=== PATIENT | male | born 1985 | race Hispanic/Latino ===

== ENCOUNTER 2019-06-09 21:41 | Emergency (ER) | payer OTHER ==
[~2019-06-09] VITALS: Ht 167.6 cm; Wt 61.2 kg
[2019-06-09 21:41] VITALS: BP 111/70
[2019-06-09] MEDS ORDERED: VERSED ONE ×2 (21:47→21:56)
--- NOTE | 2019-06-09 21:50 | NUR ---
CT PATIENT TRANSPORTED TO CT WITH ACLS TRAINED RN AND RT, ATTACHED TO THE DEFIBRILLATOR ON O2 AT 2LPM VIA NC
--- NOTE | 2019-06-09 21:52 | NUR ---
CT PATIENT UNCOOPERATIVE IN CT. PATIENT GIVEN 2MG OF VERSED PER DR LONG. DEFIBRILLATOR ATTACHED TO PATIENT AND PULSE OX ATTACHED TO PATIENT. RN AND RT AT SIDE OF PATIENT DURING CT PROCEDURE. O2SAT MAINTAINED ABOVE 90% WITHOUT NEEDING TO TITRATE O2
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
--- NOTE | 2019-06-09 22:00 | NUR ---
VERSED UNABLE TO CALM PATIENT. PATIENT CONTINUES TO BE UNCOOPERATIVE DURING CT SCAN. 5MG OF VERSED GIVEN PER DR LONG. DEFIBRILLATOR PADS AND PULSE OX ATTACHED TO PATIENT. RT AND RN REMAINED AT SIDE DURING PROCEDURE. O2SAT MAINTAINED ABOVE 90% WITH NO NEED TO TITRATE O2. PATIENT CALM AND MORE COOPERATIVE AFTER ADMINISTERATION
[2019-06-09] MEDS ORDERED: NS 1000ML 1,000 ML ONE (22:15)
--- NOTE | 2019-06-09 22:20 | PCM.EKG ---
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
[2019-06-09 22:35] LABS: BASOPHIL % 0.5 % (0.0-0.2); EOSINOPHIL # 0.1 10^3/uL (0.0-0.2); EOSINOPHIL % 0.8 % (0.0-5.0); LYMPHOCYTES # 1.03 10^3/uL1 (1.0-4.8); LYMPHOCYTES % 15.7 % (24.0-44.0); MEAN CORP HGB 33.2 pg (26-34); MONOCYTES # 0.6 10^3/uL (0.3-0.8); MONOCYTES % 8.7 % (5.0-12.0); NEUTROPHIL # 4.9 10^3/uL (1.8-7.7); NEUTROPHILS % 74.1 % (41.0-85.0)
[2019-06-09] MEDS ORDERED: ATIVAN ONE (22:37)
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
[2019-06-09 22:46] VITALS: BP 128/75
[2019-06-09 22:48] LABS: BILIRUBIN,URINE NEGATIVE (NEGATIVE); UROBILINOGEN,URINE NORMAL (NEGATIVE)
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
[2019-06-09 22:50] LABS: APPEARANCE,URINE CLEAR (CLEAR); UA COLOR YELLOW (YELLOW)
[2019-06-09] MEDS ORDERED: LIDOCAINE 1% VIAL ONE (22:55)
[2019-06-09 22:57] LABS: ALANINE AMINOTRANSFERASE(ML) 31 U/L (12-78); ALKALINE PHOSPHATASE 67 U/L (50-136); ASPARTATE AMINO TRANSFERASE 39 U/L (0-35); CALCIUM 7.3 mg/dL (8.4-10.5); CARBON DIOXIDE 23.1 mmol/L (20.0-32); GLUCOSE 82 mg/dL (70-110)
--- NOTE | 2019-06-09 23:15 | NUR ---
O2 PATIENT PLACED ON RA. O2SAT 96%
--- NOTE | 2019-06-09 23:20 | NUR ---
O2SAT O2SAT DECREASED TO 65% ON RA. PATIENT PLACED ON NON REBREATHER AT 15LPM. O2SAT 98%. NO SIGNS OF DISTRESS NOTED
[2019-06-09 23:31] VITALS: BP 105/58
--- NOTE | 2019-06-09 23:50 | NUR ---
rinaldi rinaldi catheter removed without complications
[2019-06-09] MEDS ORDERED: ADACEL VIAL IM ONE (23:54)
[2019-06-09] MEDS ORDERED: VERSED IV STA ×2 (23:56)
[2019-06-09] MEDS ORDERED: ATIVAN IV STA (23:56)
[2019-06-10] MEDS ORDERED: ADACEL VIAL IM ONE
[2019-06-10] MEDS ORDERED: TENIVAC SYRINGE IM ONE
--- NOTE | 2019-06-10 | NUR ---
O2 PATIENT ON RA. O2SAT 96%. NO SIGNS OF DISTRESS NOTED
--- NOTE | 2019-06-10 | NUR ---
DISCHARGE PATIENT DISCHARGED. PATIENT GAVE CONSENT AND NUMBER TO CALL TATIANA HIS SISTER. SISTER NOTIFIED OF DISCHARGE AND STATED SHE IS ON HER WAY TO [employer] APPRENTICE PATIENT
--- NOTE | 2019-06-10 | NUR ---
RESTRAINTS ALL RESTRAINTS REMOVED FROM PATIENT. PULSES PRESENT TO BUE AND BLE
[2019-06-10 00:31] VITALS: BP 109/55
--- NOTE | 2019-06-10 00:45 | NUR ---
O2 PATIENT PLACED ON 2LPM VIA NC. O2SAT 98%
--- NOTE | 2019-06-10 00:46 | NUR ---
UPDATE PATIENT IN BED SLEEPING. NO SIGNS OF DISTRESS NOTED
[2019-06-10 01:01] VITALS: BP 102/68
--- NOTE | 2019-06-10 01:30 | NUR ---
UPDATE PATIENT IN BED SLEEPING. RESPIRATIONS EVEN AND NON LABORED. NO SIGNS OF DISTRESS NOTED. 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 NO ANSWER
[2019-06-10 02:18] VITALS: BP 106/55
[2019-06-10 04:17] VITALS: BP 105/55
== END 2019-06-10 05:35 | disposition home or self-care (01) ==
LOC: EDBD 21:41 → ER 21:41
DX: S01.112A Laceration without foreign body of left eyelid and periocular area, initial encounter (principal); S30.0XXA Contusion of lower back and pelvis, initial encounter; V49.3XXA Car occupant (driver) (passenger) injured in unspecified nontraffic accident, initial encounter; Y93.89 Activity, other specified; Y92.488 Other paved roadways as the place of occurrence of the external cause; Y99.8 Other external cause status
CPT/HCPCS: 12011; 36415; 70450; 71260; 72125; 74177; 80053; 80307; 80320; 80346; 81000; 82550; 84484; 85025; 85610; 85730; 86900; 90471; 90715; 93005; 96374; 99291; J2001; J2060; J2250 ×2; J7030; Q9967; 99285